=== PATIENT | male | born 1935 | race African-American/Black ===

== ENCOUNTER 2017-07-04 20:15 | Inpatient (IN) | payer MEDICARE, OTHER ==
[~2017-07-04] VITALS: Ht 182.9 cm; Wt 95.3 kg
[2017-07-04 20:35] LABS: BASOPHILS % (AUTO) 0.5 % (0.0-2.0); EOSINOPHILS % (AUTO) 3.5 % (1.0-6.0); HEMATOCRIT 38.6 % (41-53); HEMOGLOBIN 12.8 g/dL (13.5-17.5); LYMPHOCYTES # (AUTO) 1.9 K/uL (1.0-4.8); LYMPHOCYTES % (AUTO) 26.2 % (22.0-44.0); MEAN CORPUSCULAR HEMOGLOBIN 27.5 pg (26.0-34.0); MEAN CORPUSCULAR HGB CONC 33.2 G/dL (31.0-37.0); MEAN CORPUSCULAR VOLUME 83 fL (80-100); MONOCYTES # (AUTO) 0.8 K/uL (0.1-1.0); MONOCYTES % (AUTO) 11.2 % (2.0-9.0); NEUTROPHILS # (AUTO) 4.1 K/uL (1.8-7.7); NEUTROPHILS % (AUTO) 58.6 % (40.0-70.0); PLATELET COUNT (AUTO) 228 K/uL (150-450); RED BLOOD CELL COUNT(AUTO) 4.66 MIL/uL (4.50-5.90); RED CELL DISTRIBUTION WIDTH 14.7 % (11.5-14.5); WHITE BLOOD COUNT (AUTO) 7.1 K/uL (4.5-11.0)
[2017-07-04] MEDS ORDERED: NIAC100T3 PO (20:37)
[2017-07-04] MEDS ORDERED: PRAV10TA39 PO (20:37)
[2017-07-04] MEDS ORDERED: CHOL50004 PO (20:37)
[2017-07-04] MEDS ORDERED: ASPI-891 PO (20:37)
[2017-07-04] MEDS ORDERED: METO25XL PO (20:37)
[2017-07-04] MEDS ORDERED: CYAN100 PO (20:37)
[2017-07-04] MEDS ORDERED: OMEP20 PO (20:37)
[2017-07-04] MEDS ORDERED: MINO50CA36 PO (20:48)
[2017-07-04 20:49] LABS: INR 1.1 (0.9-1.1); PROTHROMBIN TIME 11.9 SEC (9.4-11.6)
[2017-07-04 20:54] LABS: ANION GAP 7 mmol/L (8-16); CALCIUM, TOTAL 9.2 mg/dL (8.8-10.5); CARBON DIOXIDE 26 mmol/L (22-29); CHLORIDE 109 mmol/L (98-107); CREATININE 1.43 mg/dL (0.60-1.30); GLOMERULAR FILTR. RATE CALC 57 mL/min (>60); POTASSIUM 3.9 mmol/L (3.5-5.1); SODIUM SERUM 142 mmol/L (136-145); UREA NITROGEN, BLOOD 18 mg/dL (7-18)
[2017-07-04 21:04] LABS: B-TYPE NATRIURETIC PEPTIDE 76 pg/mL (0-100)
[2017-07-04 21:16] LABS: ALANINE AMINOTRANSFERASE 21 U/L (12-78); ALBUMIN 3.6 g/dL (3.4-5.0); ASPARTATE AMINOTRANSFERASE 16 U/L (15-37); BILIRUBIN,TOTAL 0.4 mg/dL (0.1-1.0); CREATINE KINASE MB 4.7 ng/mL (0-5); CREATINE KINASE, TOTAL 254 U/L (39-308); TOTAL PROTEIN, SERUM 6.5 g/dL (6.4-8.2)
[2017-07-04] MEDS ORDERED: SODIUM CHLORIDE 0.9% 1,000 ML IV ONE (23:15)
[2017-07-04] MEDS ORDERED: HydrALAZINE HCL 20 MG/ML VIAL IVP PRN (23:15)
[2017-07-04] MEDS ORDERED: MAGNESIUM HYDROXIDE SUSPENSION 30 ML UDCUP PO PRN (23:15)
[2017-07-04] MEDS ORDERED: ACETAMINOPHEN 325 MG TABLET PO PRN (23:15)
[2017-07-04] MEDS ORDERED: BISACODYL 10 MG RECTAL RECTAL SUPPOSITORY PR PRN (23:15)
[2017-07-04] MEDS ORDERED: MORPHINE SULFATE 2 MG/ML SYRINGE IVP PRN (23:15)
[2017-07-04] MEDS ORDERED: HYDROCODONE/ACETAMINOPHEN 5-325 MG TABLET PO PRN (23:15)
[2017-07-04] MEDS ORDERED: ZOLPIDEM TARTRATE 5 MG TABLET PO PRN (23:15)
[2017-07-04] MEDS ORDERED: ONDANSETRON HCL 4 MG/2 ML VIAL IVP PRN (23:15)
[2017-07-04 23:47] VITALS: BP_SYST 135; BP_SYST 136; BP_DIAS 75; BP_DIAS 76
[2017-07-04 23:48] VITALS: BP 162/87
[2017-07-05] MEDS ORDERED: PNEUMOCOCCAL VACCINE POLYVALENT 0.5 ML VIAL [PPSV23] IM ONE (00:45)
[2017-07-05] MEDS ORDERED: INFLUENZA VIRUS VACCINE QVS 2017-18 (3YR+)/PF 60 MCG/0.5 ML SYRINGE IM ONE (00:45)
[2017-07-05 04:35] VITALS: BP 130/71
[2017-07-05 06:45] LABS: APPEARANCE,URINE CLEAR (CLEAR); GLUCOSE, URINE (UA) NEGATIVE (NEGATIVE); KETONES,URINE NEGATIVE (NEGATIVE); LEUKOCYTE ESTERASE ,URINE NEGATIVE (NEGATIVE); OCCULT BLOOD,URINE NEGATIVE (NEGATIVE); PROTEIN,URINE NEGATIVE (NEGATIVE)
[2017-07-05 06:56] LABS: RBC,URINE None Seen /HPF (0-2); SQUAMOUS EPITHELIAL CELL,UR Rare /LPF (None Seen); WBC,URINE 0-2 /HPF (0-5)
[2017-07-05 07:33] VITALS: BP 114/67
[2017-07-05] MEDS: HEPARIN SODIUM,PORCINE 5,000 UNITS/ML VIAL SQ SCH ×4 (08:00→23:36)
[2017-07-05] MEDS: CHOLECALCIFEROL (VIT D3) 5,000 UNITS CAPSULE PO SCH (08:52)
[2017-07-05] MEDS: PRAVASTATIN SODIUM 10 MG TABLET PO SCH (08:52)
[2017-07-05] MEDS: DOCUSATE SODIUM 100 MG CAPSULE PO SCH ×2 (08:52→20:17)
[2017-07-05] MEDS: PANTOPRAZOLE SODIUM 40 MG DR TABLET PO SCH (08:52)
[2017-07-05] MEDS: ASPIRIN 325 MG EC TABLET PO SCH (08:52)
[2017-07-05] MEDS: CYANOCOBALAMIN 100 MCG TABLET PO SCH (08:52)
[2017-07-05] MEDS ORDERED: AREDS PO (09:04)
[2017-07-05] MEDS ORDERED: FURO20 PO (09:04)
[2017-07-05] MEDS ORDERED: LISI-660 PO (09:06)
[2017-07-05] MEDS ORDERED: [UNRECOGNIZED DRUG - OTHER] PO (09:06)
[2017-07-05 11:15] VITALS: BP 111/69
[2017-07-05 15:31] VITALS: BP 116/73
[2017-07-05 21:00] VITALS: BP 146/79
[2017-07-06] VITALS (7 sets, daily range): BP systolic 139–171; BP diastolic 85–93
[2017-07-06 07:40] LABS: BASOPHILS % (AUTO) 0.5 % (0.0-2.0); EOSINOPHILS % (AUTO) 5.1 % (1.0-6.0); HEMATOCRIT 33.8 % (41-53); HEMOGLOBIN 11.3 g/dL (13.5-17.5); LYMPHOCYTES # (AUTO) 2.5 K/uL (1.0-4.8); LYMPHOCYTES % (AUTO) 44.1 % (22.0-44.0); MEAN CORPUSCULAR HEMOGLOBIN 27.6 pg (26.0-34.0); MEAN CORPUSCULAR HGB CONC 33.3 G/dL (31.0-37.0); MEAN CORPUSCULAR VOLUME 83 fL (80-100); MONOCYTES # (AUTO) 0.5 K/uL (0.1-1.0); MONOCYTES % (AUTO) 9.6 % (2.0-9.0); NEUTROPHILS # (AUTO) 2.3 K/uL (1.8-7.7); NEUTROPHILS % (AUTO) 40.7 % (40.0-70.0); PLATELET COUNT (AUTO) 189 K/uL (150-450); RED BLOOD CELL COUNT(AUTO) 4.07 MIL/uL (4.50-5.90); RED CELL DISTRIBUTION WIDTH 15.1 % (11.5-14.5); WHITE BLOOD COUNT (AUTO) 5.6 K/uL (4.5-11.0)
[2017-07-06 07:58] LABS: HEMOGLOBIN A1C 6.4 % (4.5-6.2)
[2017-07-06] MEDS: HEPARIN SODIUM,PORCINE 5,000 UNITS/ML VIAL SQ SCH ×3 (08:00→23:37)
[2017-07-06 08:02] LABS: ANION GAP 9 mmol/L (8-16); CALCIUM, TOTAL 9.2 mg/dL (8.8-10.5); CARBON DIOXIDE 25 mmol/L (22-29); CHLORIDE 107 mmol/L (98-107); CHOL/HDL RATIO 3.5 (4.2-7.3); CREATININE 0.98 mg/dL (0.60-1.30); GLOMERULAR FILTR. RATE CALC > 60 mL/min (>60); POTASSIUM 3.8 mmol/L (3.5-5.1); SODIUM SERUM 141 mmol/L (136-145); UREA NITROGEN, BLOOD 13 mg/dL (7-18)
[2017-07-06] MEDS: PRAVASTATIN SODIUM 10 MG TABLET PO SCH (09:03)
[2017-07-06] MEDS: PANTOPRAZOLE SODIUM 40 MG DR TABLET PO SCH (09:03)
[2017-07-06] MEDS: DOCUSATE SODIUM 100 MG CAPSULE PO SCH ×2 (09:03→21:14)
[2017-07-06] MEDS: ASPIRIN 325 MG EC TABLET PO SCH (09:03)
[2017-07-06] MEDS: CHOLECALCIFEROL (VIT D3) 5,000 UNITS CAPSULE PO SCH (09:03)
[2017-07-06] MEDS: CYANOCOBALAMIN 100 MCG TABLET PO SCH (09:03)
[2017-07-06 13:09] LABS: THYROID STIMULATING HORMONE 1.7 uIU/mL (0.36-3.74)
[2017-07-07 04:13] VITALS: BP 168/72
[2017-07-07 06:45] LABS: BASOPHILS % (AUTO) 0.4 % (0.0-2.0); HEMATOCRIT 38.4 % (41-53); HEMOGLOBIN 12.7 g/dL (13.5-17.5); LYMPHOCYTES # (AUTO) 2.2 K/uL (1.0-4.8); LYMPHOCYTES % (AUTO) 33.3 % (22.0-44.0); MEAN CORPUSCULAR HEMOGLOBIN 27.3 pg (26.0-34.0); MEAN CORPUSCULAR VOLUME 83 fL (80-100); MONOCYTES # (AUTO) 0.7 K/uL (0.1-1.0); MONOCYTES % (AUTO) 11.6 % (2.0-9.0); NEUTROPHILS # (AUTO) 3.2 K/uL (1.8-7.7); NEUTROPHILS % (AUTO) 49.7 % (40.0-70.0); PLATELET COUNT (AUTO) 209 K/uL (150-450); RED BLOOD CELL COUNT(AUTO) 4.64 MIL/uL (4.50-5.90); RED CELL DISTRIBUTION WIDTH 14.3 % (11.5-14.5); WHITE BLOOD COUNT (AUTO) 6.5 K/uL (4.5-11.0)
[2017-07-07 06:57] LABS: ALANINE AMINOTRANSFERASE 21 U/L (12-78); ALBUMIN 3.5 g/dL (3.4-5.0); ANION GAP 10 mmol/L (8-16); ASPARTATE AMINOTRANSFERASE 17 U/L (15-37); BILIRUBIN,TOTAL 0.5 mg/dL (0.1-1.0); CARBON DIOXIDE 26 mmol/L (22-29); CHLORIDE 104 mmol/L (98-107); CREATININE 0.97 mg/dL (0.60-1.30); GLOMERULAR FILTR. RATE CALC > 60 mL/min (>60); POTASSIUM 3.8 mmol/L (3.5-5.1); SODIUM SERUM 140 mmol/L (136-145); TOTAL PROTEIN, SERUM 6.3 g/dL (6.4-8.2); UREA NITROGEN, BLOOD 12 mg/dL (7-18)
[2017-07-07 07:53] VITALS: BP 160/94
== END 2017-07-07 09:10 | disposition left against medical advice (07) | DRG 308 ==
LOC: EMS 20:17 → 5N 22:50
PROVIDERS: ADMIT Internal Medicine; ATTEND Internal Medicine
DX: I49.9 Cardiac arrhythmia, unspecified (principal); N17.0 Acute kidney failure with tubular necrosis; R55 Syncope and collapse; I25.9 Chronic ischemic heart disease, unspecified; I11.9 Hypertensive heart disease without heart failure; E78.5 Hyperlipidemia, unspecified; I70.0 Atherosclerosis of aorta; I73.9 Peripheral vascular disease, unspecified; R90.82 White matter disease, unspecified; K21.9 Gastro-esophageal reflux disease without esophagitis; Z82.49 Family history of ischemic heart disease and other diseases of the circulatory system; Z87.891 Personal history of nicotine dependence; Z86.73 Personal history of transient ischemic attack (TIA), and cerebral infarction without residual deficits; Z28.21 Immunization not carried out because of patient refusal; Z53.21 Procedure and treatment not carried out due to patient leaving prior to being seen by health care provider
CPT/HCPCS: 70450; 70551; 83036; 83735; 84439; 84443; 84481; 90471; 93005; 93306; 93880; 99285; J1644; J7030

== ENCOUNTER → 2019-10-19 | Outpatient (CLI) | payer MEDICARE, OTHER ==
[~2019-10-19] MED LIST: AREDS PO; ASPI-1149 PO; CHOL50004 PO; CYAN100T3 PO; FURO20 PO; LISI-660 PO; METO25XL PO; MINO50CA36 PO; NIAC100T3 PO; OMEP20 PO; PRAV10TA39 PO; [UNRECOGNIZED DRUG - OTHER] PO
== END | disposition home or self-care (01) ==
LOC: RADMN 09:24
PROVIDERS: ATTEND Hospitalist
DX: M47.817 Spondylosis without myelopathy or radiculopathy, lumbosacral region (principal); M77.9 Enthesopathy, unspecified; L98.499 Non-pressure chronic ulcer of skin of other sites with unspecified severity; M76.9 Unspecified enthesopathy, lower limb, excluding foot; M25.78 Osteophyte, vertebrae; M89.9 Disorder of bone, unspecified; M46.26 Osteomyelitis of vertebra, lumbar region; R60.0 Localized edema; Z96.641 Presence of right artificial hip joint
CPT/HCPCS: 72195